=== PATIENT | female | born 1970 | race Caucasian/White ===

== ENCOUNTER 2022-09-14 10:23 | Outpatient (CLI) | payer MEDICARE, SELFPAY ==
--- NOTE | 2022-09-14 10:45 | PC.NURSE ---
Pt to room 202 amb per self. A&Ox3. VSS. Plan of care explained. Pt without questions or concerns. Oriented to room. Call driver in reach. Reminded to call with needs.
[2022-09-14] MEDS: IRON SUCROSE COMPLEX 300 MG in SODIUM CHLORIDE 0.9% IV 250 ML 125 MG IVPB (11:12)
[2022-09-14 11:42] VITALS: BP 154/88; PULSE 77; RESP 20; TEMP 35.9; O2SAT 98; BMI 32.8
== END 2022-09-14 10:24 | disposition home or self-care (01) ==
DX: D50.9 Iron deficiency anemia, unspecified (principal)
CPT/HCPCS: 96365; 96366; J1756; J7050

== ENCOUNTER 2022-09-21 10:42 | Outpatient (CLI) | payer MEDICARE, SELFPAY ==
--- NOTE | 2022-09-21 11:05 | PC.NURSE ---
Patient here to receive iron infusion. Patient sitting up in chair, provided with call driver and instructed how to use it. Patient give water per request. tolerated IV start well. Denies any further needs at this time.
[2022-09-21] MEDS: IRON SUCROSE COMPLEX 300 MG in SODIUM CHLORIDE 0.9% IV 250 ML 176.67 MG IVPB (11:09)
--- NOTE | 2022-09-21 12:45 | PC.NURSE ---
Patient tolerated Iron infusion well. Denies any questions or concerns. IV site discontinued, dressing applied to site. Patient left floor ambulatory. Patient to come back on 09/28 for next infusion, patient aware.
== END 2022-09-21 10:43 | disposition home or self-care (01) ==
LOC: CHSTREATRM 10:47
DX: D50.9 Iron deficiency anemia, unspecified (principal)
CPT/HCPCS: 96365; 96366; J1756; J7050

== ENCOUNTER 2022-09-28 10:41 | Outpatient (CLI) | payer MEDICARE, SELFPAY ==
[2022-09-28] MEDS: IRON SUCROSE COMPLEX 300 MG in SODIUM CHLORIDE 0.9% IV 250 ML 125 MG IVPB (11:00)
[2022-09-28 11:05] VITALS: BP 135/69; PULSE 78; RESP 16; TEMP 36.4; O2SAT 98; BMI 33.3
--- NOTE | 2022-09-28 12:52 | PC.NURSE ---
Patient here for #3 of 3 IV Venofer infusion. No concerns voiced. IV Venofer administered. SEE MAR. Tolerated well. Safe exit of hospital per ambulatory/self.
== END 2022-09-28 10:42 | disposition home or self-care (01) ==
LOC: CHSTREATRM 10:42
DX: D50.9 Iron deficiency anemia, unspecified (principal)
CPT/HCPCS: 96365; 96366; J1756; J7050